=== PATIENT | male | born 1970 ===

== ENCOUNTER 2024-12-27 05:59 | Day surgery (SDC) | payer OTHER ==
[2024-12-26 11:10] VITALS: BP 147/82
[2024-12-26 11:11] LABS: BASO % 0.6 % (0.1-1.2); EOS # 0.08 (0.04-0.54); EOS % 1.2 % (0.7-7.0); LYMPH # 2.16 (1.18-3.74); LYMPH % 31.5 % (19.3-53.1); MEAN PLATELET VOLUME 10.20 fl (9.4-12.4); MONO # 0.54 (0.24-0.82); MONO % 7.9 % (4.7-12.5); NEUT # 4.02 (1.56-6.13); NEUT % 58.5 % (34.0-71.1); RED CELL DISTRIBUTION WIDTH 12.6 % (11.6-14.4)
[2024-12-26 11:15] LABS: URINE APPEARANCE Clear; URINE BILIRRUBIN Negative (NEGATIVE); URINE BLOOD Negative; URINE COLOR Yellow; URINE GLUCOSE Negative (NEGATIVE); URINE KETONE Negative (NEGATIVE); URINE LEUKOCYTE Negative; URINE NITRATE Negative; URINE PROTEIN Negative (NEGATIVE); URINE UROBILINOGEN 0.2 E.U./dl
[2024-12-26 11:16] LABS: URINE RBC 2.4 uL (0.0-20.8); URINE WBC 2.4 uL (0.0-23.2)
[2024-12-26 11:44] LABS: INR 0.96
[2024-12-26 11:52] LABS: ALT/SGPT 60.0 U/L (12-78); AST/SGOT 17.0 U/L (15-37); BILIRUBIN TOTAL 0.62 mg/dL (0.3-1.2); BUN CREA RATIO 14.0 (7.0-25.0); CREATININE SERUM 0.84 mg/dL (0.70-1.30); GFR 95.95; GLOBULINA 3.4 G/DL (2.4-3.5); GLUCOSE FASTING 99.0 mg/dL (65-100); OSMOLALITY SERUM 279.0 MOSM/KG (275-295)
[2024-12-26 11:57] LABS: URINE EPITHELIAL CELLS 0.7 uL (0.0-38.8)
[2024-12-26 11:58] LABS: URINE BACTERIA 2.3 uL (0.0-1933); URINE CAST 0.00 uL (0.0-1.40)
[~2024-12-27] VITALS: Ht 175.3 cm; Wt 82.6 kg
[~2024-12-27 05:59] MED LIST: NEXIUM 24HR20 MG PO
[2024-12-27] MEDS ORDERED: CEFAZOLIN SODIUM 1,000 MG VIAL IV ONE (13:00)
== END 2024-12-27 15:55 | disposition home or self-care (01) ==
LOC: CIR.AMB 05:59
PROVIDERS: ATTEND Surgery
DX: K81.1 Chronic cholecystitis (principal)